=== PATIENT | male | born 1965 | race Caucasian/White ===

== ENCOUNTER 2018-06-05 17:16 | Emergency (ER) | payer BC ==
[~2018-06-05] VITALS: Ht 172.7 cm; Wt 106.8 kg
[2018-06-05 17:17] VITALS: Ht 172.7 cm; Wt 106.8 kg
[2018-06-05] MEDS ORDERED: CLARITIN 10 MG10 MG PO (17:19)
[2018-06-05] MEDS ORDERED: ASPIRIN325 MG PO (17:19)
[2018-06-05] MEDS ORDERED: ELAVIL10 MG PO (17:19)
[2018-06-05] MEDS ORDERED: LIPITOR20 MG PO (17:19)
[2018-06-05] MEDS ORDERED: VITAMINS (17:20)
[2018-06-05] MEDS ORDERED: FER-IN-SOL DROP50 ML (17:20)
[2018-06-05 18:22] LABS: BASOPHILS 0.1 % (0-2); EOSINOPHILS 1.5 % (0-7); HEMATOCRIT 43.7 % (42.0-54.0); IMMATURE GRANULOCYTES 0.4 % (0-5); LYMPHOCYTES 14.2 % (15-50); MCH 31.3 pg (26.0-34.0); MCHC 34.3 g/dL (31.0-37.0); MEAN PLATELET VOLUME 9.6 fL (7.4-10.4); MONOCYTES 8.4 % (2-11); NEUTROPHILS 75.4 % (40-80); PLATELET COUNT 239 10x3/uL (130-400); RDW 13.7 % (11.5-14.5); WBC 13.7 10x3/uL (4.8-10.8)
[2018-06-05 18:40] LABS: ALBUMIN 3.7 g/dL (3.4-5.0); ALKALINE PHOSPHATASE 75 U/L (46-116); ALT (SGPT) 61 U/L (10-68); CALC OSMOLALITY 282 mosm/kg (275-300); CALCIUM 7.8 mg/dL (8.5-10.1); CARBON DIOXIDE 26.9 mmol/L (21.0-32.0); CHLORIDE - SERUM 106 mmol/L (98-107); CREATININE - SERUM 0.9 mg/dL (0.6-1.3); GLUCOSE 102 mg/dL (74-106); POTASSIUM - SERUM 3.8 mmol/L (3.5-5.1); PROTEIN - SERUM 6.7 g/dL (6.4-8.2); SODIUM 141 mmol/L (136-145); UREA NITROGEN 17 mg/dL (7-18); eGFR NON AFRICAN AMERICAN > 90 mL/min (90-120)
[2018-06-05 18:52] LABS: CKMB 0.5 U/L (0.0-3.6); CREATINE KINASE 50 UL (21-232)
[2018-06-05 19:03] LABS: TROPONIN-I < 0.017 ng/mL (0.000-0.060)
[2018-06-05 19:46] VITALS: BP 144/91
== END 2018-06-05 19:46 | disposition home or self-care (01) ==
LOC: D.ER 17:16
PROVIDERS: Emergency Medicine
DX: R55 Syncope and collapse (principal)